=== PATIENT | male | born 1985 | race Caucasian/White ===

== ENCOUNTER 2017-05-27 01:54 | Emergency (ER) | payer SELFPAY ==
[~2017-05-27] VITALS: Ht 177.8 cm; Wt 90.0 kg
[2017-05-27 02:50] LABS: HEMOGLOBIN 19.1 g/dl (14.0-18.0); IMMATURE GRANULOCYTES 0.5 % (0.0-1.0); MEAN CELL VOLUME 91.3 fL CALC (80.0-100.0); MEAN CORPUSCULAR HGB 30.6 pG CALC (26.0-32.0); MEAN CORPUSCULAR HGB CONC 33.5 g/L CALC (32.0-36.0); NEUT# 15.22 thou/uL (1.82-7.42); RED BLOOD COUNT 6.24 mill/uL (4.70-6.10); RED CELL DISTRI WIDTH 12.8 % (11.5-15.5)
[2017-05-27 02:59] LABS: ALBUMIN 4.7 g/dL (3.2-5.0); ALKALINE PHOSPHATASE 114 u/l (38-126); ANION GAP 20 (6-22 (CALC)); BUN 11 mg/dL (9-20); BUN/CREATININE RATIO 11 (12-20 (CALC)); CALCIUM 9.3 mg/dL (8.4-10.2); CARBON DIOXIDE 24 mmol/l (22-30); CHLORIDE 99 mmol/l (95-108); GFR > 60 ML/MIN (>=60 (CALC)); GFR FOR AFR.AMER. > 60 ML/MIN (>=60 (CALC)); GLUCOSE 186 mg/dL (75-110); POTASSIUM 3.1 mmol/l (3.5-5.1); SGOT/AST 69 u/l (17-59); SGPT/ALT 96 u/l (21-72); SODIUM 140 mmol/l (137-146); TOTAL PROTEIN 7.7 g/dL (6.3-8.2)
[2017-05-27 03:03] LABS: ETHYL ALCOHOL < 10 mg/dl (0-30)
[2017-05-27 03:11] LABS: MYOGLOBIN 35 ng/mL (0 - 121)
[2017-05-27 03:38] LABS: URINE BILIRUBIN - DIPSTICK NEGATIVE (NEGATIVE); URINE BLOOD DIPSTICK NEGATIVE (NEGATIVE); URINE CLARITY SLIGHT CLOUDY; URINE COLOR YELLOW; URINE GLUCOSE - DIPSTICK 100 mg/dL (NEGATIVE); URINE KETONE NEGATIVE (NEGATIVE); URINE LEUK ESTERASE NEGATIVE (NEGATIVE); URINE NITRITE - DIPSTICK NEGATIVE (Negative); URINE PROTEIN - DIPSTICK NEGATIVE (NEG-TRACE); URINE UROBILINOGEN - DIPSTICK 0.2 E.U./dL (0.2)
[2017-05-27 03:41] LABS: BARBITURATES NEGATIVE (NEGATIVE); COCAINE NEGATIVE (NEGATIVE); METHADONE NEGATIVE (NEGATIVE); OXCYCODONE NEGATIVE (NEGATIVE); TETRAHYDROCANNABIONOL POSITIVE (NEGATIVE); TRICYLIC ANTIDEPRESSANTS NEGATIVE (NEGATIVE)
[2017-05-27 04:02] LABS: INFLUENZA A NONE DETECTED (NONE DETECT); INFLUENZA B NONE DETECTED (NONE DETECT)
[2017-05-27] MEDS ORDERED: ZPAK PO (06:31)
[2017-05-27] MEDS ORDERED: ZOFRAN ODT4 MG PO (06:31)
[2017-05-27 06:43] VITALS: BP 142/66
== END 2017-05-27 06:42 | disposition home or self-care (01) | DRG 153 ==
LOC: ED 01:54
PROVIDERS: Emergency Medicine
DX: J02.0 Streptococcal pharyngitis (principal); E86.0 Dehydration; I95.1 Orthostatic hypotension; R42 Dizziness and giddiness; R50.9 Fever, unspecified; D72.829 Elevated white blood cell count, unspecified

== ENCOUNTER 2017-05-27 19:23 | Emergency (ER) | payer SELFPAY ==
[~2017-05-27] VITALS: Ht 177.8 cm; Wt 62.4 kg
[~2017-05-27 19:23] MED LIST: ZOFRAN ODT4 MG PO; ZPAK PO
[2017-05-27 20:19] LABS: HEMATOCRIT 45.2 % (39.0-50.0); HEMOGLOBIN 15.4 g/dl (14.0-18.0); IMMATURE GRANULOCYTES 0.5 % (0.0-1.0); MEAN CELL VOLUME 92.6 fL CALC (80.0-100.0); MEAN CORPUSCULAR HGB 31.6 pG CALC (26.0-32.0); MEAN CORPUSCULAR HGB CONC 34.1 g/L CALC (32.0-36.0); NEUT# 15.03 thou/uL (1.82-7.42); RED BLOOD COUNT 4.88 mill/uL (4.70-6.10); RED CELL DISTRI WIDTH 13.1 % (11.5-15.5)
[2017-05-27 20:33] VITALS: BP 152/93
== END 2017-05-27 20:45 | disposition home or self-care (01) | DRG 816 ==
LOC: ED 19:23
PROVIDERS: Emergency Medicine
DX: D72.829 Elevated white blood cell count, unspecified (principal)

== ENCOUNTER 2018-01-05 15:39 | Emergency (ER) | payer SELFPAY ==
[~2018-01-05] VITALS: Ht 177.8 cm; Wt 80.0 kg
[2018-01-05 16:37] LABS: HEMATOCRIT 45.5 % (39.0-50.0); HEMOGLOBIN 15.4 g/dl (14.0-18.0); IMMATURE GRANULOCYTES 0.5 % (0.0-1.0); MEAN CELL VOLUME 93.6 fL CALC (80.0-100.0); MEAN CORPUSCULAR HGB 31.7 pG CALC (26.0-32.0); MEAN CORPUSCULAR HGB CONC 33.8 g/L CALC (32.0-36.0); NEUT# 3.02 thou/uL (1.82-7.42); RED BLOOD COUNT 4.86 mill/uL (4.70-6.10); RED CELL DISTRI WIDTH 12.5 % (11.5-15.5)
[2018-01-05 16:51] LABS: ALBUMIN 4.4 g/dL (3.2-5.0); ALKALINE PHOSPHATASE 88 u/l (38-126); BILIRUBIN, TOTAL 0.4 mg/dL (0.0-1.4); BUN 4 mg/dL (9-20); BUN/CREATININE RATIO 5 (12-20 (CALC)); CARBON DIOXIDE 25 mmol/l (22-30); CHLORIDE 103 mmol/l (95-108); CREATININE 0.9 mg/dL (0.7-1.3); GFR > 60 ML/MIN (>=60 (CALC)); GFR FOR AFR.AMER. > 60 ML/MIN (>=60 (CALC)); SGOT/AST 46 u/l (17-59); SGPT/ALT 53 u/l (21-72); SODIUM 141 mmol/l (137-146)
[2018-01-05 16:54] LABS: ANION GAP 18 (6-22 (CALC)); POTASSIUM 4.7 mmol/l (3.5-5.1)
[2018-01-05 16:58] LABS: URINE BILIRUBIN - DIPSTICK NEGATIVE (NEGATIVE); URINE BLOOD DIPSTICK NEGATIVE (NEGATIVE); URINE COLOR YELLOW; URINE GLUCOSE - DIPSTICK NEGATIVE (NEGATIVE); URINE KETONE NEGATIVE (NEGATIVE); URINE LEUK ESTERASE NEGATIVE (NEGATIVE); URINE NITRITE - DIPSTICK NEGATIVE (Negative); URINE PH 5.5 (4.5-8.0); URINE PROTEIN - DIPSTICK NEGATIVE (NEG-TRACE); URINE SPECIFIC GRAVITY <=1.005; URINE UROBILINOGEN - DIPSTICK 0.2 E.U./dL (0.2)
[2018-01-05 17:02] LABS: URINE CLARITY CLEAR
[2018-01-05] MEDS ORDERED: ZOFRAN4 M1 PO (17:58)
[2018-01-05 18:14] VITALS: BP 136/98
== END 2018-01-05 18:17 | disposition home or self-care (01) | DRG 313 ==
LOC: ED 15:39
PROVIDERS: Family Medicine
DX: R07.89 Other chest pain (principal); E86.0 Dehydration; R42 Dizziness and giddiness; R11.0 Nausea

== ENCOUNTER 2018-11-15 23:32 | Observation (INO) | payer SELFPAY ==
[~2018-11-15] VITALS: Ht 177.8 cm; Wt 96.6 kg
[~2018-11-15 23:32] MED LIST changes: +ZOFRAN4 M1 PO
--- NOTE | 2018-11-15 23:35 | NUR ---
PT TO ROOM AND TRIAGE COMPLETED THERE. PT LABORED BREATHING. ANXIOUS. BBS WHEEZING.
--- NOTE | 2018-11-16 | NUR ---
BREATHING TREATMENT GIVEN USING MOUTH PEICE. BREATHING TECH. FOR GOOD DEPOSITION TO THE LUNGS.
[2018-11-16 00:19] LABS: IMMATURE GRANULOCYTES 0.4 % (0.0-5.0); MEAN CELL VOLUME 91.2 fL CALC (80.0-100.0); MEAN CORPUSCULAR HGB 30.6 pG CALC (26.0-32.0); MEAN CORPUSCULAR HGB CONC 33.6 g/L CALC (32.0-36.0); NEUT# 10.2 thou/uL (1.82-7.42); RED BLOOD COUNT 5.88 mill/uL (4.70-6.10); RED CELL DISTRI WIDTH 12.2 % (11.5-15.5)
[2018-11-16 00:20] LABS: HEMATOCRIT 53.6 % (39.0-50.0)
[2018-11-16 00:29] LABS: ALBUMIN 4.7 g/dL (3.2-5.0); ALKALINE PHOSPHATASE 109 u/l (38-126); ANION GAP 19 (6-22 (CALC)); BILIRUBIN, TOTAL 0.7 mg/dL (0.0-1.4); BUN 12 mg/dL (9-20); BUN/CREATININE RATIO 12 (12-20 (CALC)); CARBON DIOXIDE 27 mmol/l (22-30); CHLORIDE 100 mmol/l (95-108); GFR > 60 ML/MIN (>=60 (CALC)); GFR FOR AFR.AMER. > 60 ML/MIN (>=60 (CALC)); POTASSIUM 4.5 mmol/l (3.5-5.1); SGOT/AST 43 u/l (17-59); SODIUM 141 mmol/l (137-146)
--- NOTE | 2018-11-16 00:35 | NUR ---
IV LEVAQUIN INFUSING AT THIS TIME. NO REACTIONS NOTED.
--- NOTE | 2018-11-16 01:15 | NUR ---
LEVAQUIN COMPLETE, NO REACTIONS NOTED.
[2018-11-16] MEDS ORDERED: ROBITUSSIN AC10 ML PO (01:38)
[2018-11-16] MEDS ORDERED: LEVAQUIN500 MG PO (01:38)
[2018-11-16] MEDS ORDERED: MEDDOSEPAK PO (01:38)
--- NOTE | 2018-11-16 01:40 | NUR ---
DR. LEONARD BACK AT BEDSIDE TO DISCUSS FINDINGS WITH PT.
--- NOTE | 2018-11-16 01:42 | NUR ---
LAB AT BEDSIDE FOR REPEAT LACTIC ACID.
--- NOTE | 2018-11-16 02:30 | NUR ---
REPORT TO TA PADILLA.
[2018-11-16 02:43] VITALS: BP 178/96
--- NOTE | 2018-11-16 02:43 | NUR ---
PT ARRIVED TO UNIT VIA WC . AT 0243. IV SITE IS FREE FROM REDNESS OR EDEMA.
--- NOTE | 2018-11-16 02:50 | NUR ---
PT. TAKEN UP TO M/S AT THIS TIME.
--- NOTE | 2018-11-16 03:14 | NUR ---
ASSESSMENT IS COMPLTED: IV SITE IS FREE FROM REDNESS OR EDEMA. HR IS REG,PULSES ARE STRONG X4, ABD IS SOFT WITH ACTIVE BS. BREATH SOUNDS ARE CLEAR WITH INSPIRATORY AND EXPIRATORY WHEEZING NOTED. TELE MONITOR IN PLACE. CONTINUE TO OSBERVE AND MONITOR
--- NOTE | 2018-11-16 04:05 | NUR ---
PT IS RESTING IN BED WITH NO DISTRESS NOTED. AUDIBLE WHEEZING CAN BE HEARD. CONTINUE TO OSBERVE AND MONITOR.
[2018-11-16 04:08] VITALS: BP 151/85
--- NOTE | 2018-11-16 07:15 | NUR ---
REPORT RECEIVED FROM VALERIE. PT IS RESTING IN BED WITH NO S/S OF DISTRESS NOTED. PT DENIES NEEDS AT THIS TIME. CALL LIGHT IN REACH.
[2018-11-16 08:00] VITALS: BP 138/90
--- NOTE | 2018-11-16 08:22 | NUR ---
ASSESSMENT DONE. TELE IN PLACE. PT IS A&O X3. PT DENIES PAIN AT THIS TIME. NS 125ML/HR INFUSING WELL. PT LUNGS SOUND WHEEZE. INCENTIVE SPIROMETRY ENCOURAGE PT VERBALIZED UNDERSTANDINFG. SAFETY PRECAUTIONS REINFORCED AND CALL LIGHT IN REACH.
[2018-11-16 09:08] LABS: HEMATOCRIT 49.1 % (39.0-50.0); HEMOGLOBIN 16.3 g/dl (14.0-18.0); IMMATURE GRANULOCYTES 0.4 % (0.0-5.0); MEAN CELL VOLUME 92.1 fL CALC (80.0-100.0); MEAN CORPUSCULAR HGB 30.6 pG CALC (26.0-32.0); MEAN CORPUSCULAR HGB CONC 33.2 g/L CALC (32.0-36.0); NEUT# 10.5 thou/uL (1.82-7.42); RED BLOOD COUNT 5.33 mill/uL (4.70-6.10); RED CELL DISTRI WIDTH 12.3 % (11.5-15.5)
[2018-11-16 09:19] LABS: ANION GAP 21 (6-22 (CALC)); BUN 9 mg/dL (9-20); BUN/CREATININE RATIO 13 (12-20 (CALC)); CARBON DIOXIDE 20 mmol/l (22-30); CHLORIDE 104 mmol/l (95-108); CREATININE 0.7 mg/dL (0.7-1.3); GFR > 60 ML/MIN (>=60 (CALC)); GFR FOR AFR.AMER. > 60 ML/MIN (>=60 (CALC)); MAGNESIUM 1.7 mg/dL (1.6-2.3); POTASSIUM 4.5 mmol/l (3.5-5.1); SODIUM 142 mmol/l (137-146)
[2018-11-16 10:16] LABS: URINE BILIRUBIN - DIPSTICK NEGATIVE (NEGATIVE); URINE BLOOD DIPSTICK NEGATIVE (NEGATIVE); URINE COLOR YELLOW; URINE GLUCOSE - DIPSTICK 500 mg/dL (NEGATIVE); URINE KETONE TRACE mg/dL (NEGATIVE); URINE LEUK ESTERASE NEGATIVE (NEGATIVE); URINE NITRITE - DIPSTICK NEGATIVE (Negative); URINE PROTEIN - DIPSTICK NEGATIVE (NEG-TRACE); URINE SPECIFIC GRAVITY >=1.030; URINE UROBILINOGEN - DIPSTICK 0.2 E.U./dL (0.2)
--- NOTE | 2018-11-16 11:59 | NUR ---
PT IS EATING HIS LUNCH WITH NO S/S OF DISTRESS NOTED. PT DENIES NEEDS AT THIS TIME. CALL LIGHT IN REACH.
[2018-11-16 12:00] VITALS: BP 139/89
--- NOTE | 2018-11-16 15:38 | NUR ---
MEDICATED PT WITH MOTRIN FOR PAIN IN BACK 01/15 AND ROBITUSIN GIVEN FOR HIS COUGH. PT DENIES ANY OTHER NEEDS AT THIS TIME. CALL LIGHT IN REACH.
[2018-11-16 16:06] VITALS: BP 128/91
--- NOTE | 2018-11-16 19:30 | NUR ---
BEDSIDE REPORT RECEIVED FROM TA DE. PT SITTING UP IN BED; ALERT AND ORIENTED. PLEASANT AND TALKATIVE. DENIES PAIN. RESPIRATIONS EVEN AND UNLABORED ON ROOM AIR; COUGH NOTED. PLAN OF CARE REVIEWED. PT ENCOURAGED TO VERBALIZE CONCERNS. STATES UNDERSTANDING. SAFETY MEASURES IN PLACE. CALL LIGHT WITHIN REACH.
[2018-11-16 19:55] VITALS: BP 144/87
[2018-11-17 00:13] VITALS: BP 146/91
--- NOTE | 2018-11-17 00:26 | NUR ---
VIBRAMYCIN INFUSING AT THIS TIME. PT ASLEEP WITH NO SIGNS OF DISTRESS; AWAKENS TO VERBAL STIMULI. DENIES PAIN. RESPIRATIONS EVEN AND UNLABORED ON ROOM AIR. IV FLUIDS INFUSING WITHOUT DIFFICULTY; IV SITE APPEARS HEALTHY. CALL LIGHT WITHIN REACH.
[2018-11-17 04:18] VITALS: BP 129/77
--- NOTE | 2018-11-17 04:37 | NUR ---
NO ACUTE CHANGES THROUGHOUT THE NIGHT. NO REQUESTS OR CONCERNS AT THIS TIME.
[2018-11-17 05:37] LABS: HEMATOCRIT 46.9 % (39.0-50.0); HEMOGLOBIN 15.6 g/dl (14.0-18.0); IMMATURE GRANULOCYTES 0.8 % (0.0-5.0); MEAN CELL VOLUME 92.5 fL CALC (80.0-100.0); MEAN CORPUSCULAR HGB 30.8 pG CALC (26.0-32.0); MEAN CORPUSCULAR HGB CONC 33.3 g/L CALC (32.0-36.0); NEUT# 21.14 thou/uL (1.82-7.42); RED BLOOD COUNT 5.07 mill/uL (4.70-6.10); RED CELL DISTRI WIDTH 12.8 % (11.5-15.5)
[2018-11-17 06:12] LABS: ALBUMIN 3.8 g/dL (3.2-5.0); ALKALINE PHOSPHATASE 89 u/l (38-126); ANION GAP 16 (6-22 (CALC)); BILIRUBIN, TOTAL 0.4 mg/dL (0.0-1.4); BUN 10 mg/dL (9-20); BUN/CREATININE RATIO 15 (12-20 (CALC)); CARBON DIOXIDE 22 mmol/l (22-30); CHLORIDE 107 mmol/l (95-108); CREATININE 0.7 mg/dL (0.7-1.3); GFR > 60 ML/MIN (>=60 (CALC)); GFR FOR AFR.AMER. > 60 ML/MIN (>=60 (CALC)); MAGNESIUM 1.8 mg/dL (1.6-2.3); POTASSIUM 4.6 mmol/l (3.5-5.1); SGOT/AST 27 u/l (17-59); SODIUM 141 mmol/l (137-146); TOTAL PROTEIN 6.6 g/dL (6.3-8.2)
--- NOTE | 2018-11-17 07:00 | NUR ---
REPORT RECIVED FROM [facility], RN. PT SLEEPING IN BED. RESPERATIONS EVEN AND UNLABORED ON RA. NO SIGNS OF DISTRESS. WILL CONTINUE TO MONITOR.
[2018-11-17 07:39] VITALS: BP 131/84
--- NOTE | 2018-11-17 08:00 | NUR ---
PT SLEEPING IN BED, EASILY AROUSED. ALERT AND ORIENTED. VS OBTAINED AND ASSESSMENT COMPLETED. RESPIRATIONS EVEN AND UNLABORED, ON RA. WHEEZES NOTED THROUGH OUT LUNGS. TELE MONITOR IN PLACE. IV #18 RT AC INFUSING NS 125 ML/HR. BOWEL SOUNDS ACTIVE. PEDAL PULSES STRONG. PT DENIES ANY PAIN OR DISCOMFORT. PT ENCOURAGED TO USE CALL LIGHT IF NEEDS SHOULD ARISE. SAFETY PRECAUTIONS IN PLACE. CALL LIGHT WITHIN REACH. WILL CONTINUE TO MONITOR.
[2018-11-17 10:55] VITALS: BP 139/88
--- NOTE | 2018-11-17 11:05 | NUR ---
DR. URIOSTEGUI AT PT BEDSIDE DISCUSSING PLAN OF CARE.
--- NOTE | 2018-11-17 12:14 | NUR ---
PT RESTING IN BED. VIBRAMCYIN 100MG IN 100ML SODIUM CHLORIDE HUNG. RESPIRATION EVEN AND UNLABORED, ON RA. SAFETY PRECAUTIONS IN PLACE. CALL LIGHT WITHIN REACH. WILL CONTINUE TO MONITOR.
[2018-11-17] MEDS ORDERED: DOXYCYCL HYC100 MG PO (12:44)
--- NOTE | 2018-11-17 14:00 | NUR ---
PT RESTING IN BED. FRIEND AT BEDSIDE. PT PROVIDED WITH DISCHARGE INSTRUCTIONS AND NEW MEDICATIONS. IV #18 RAC REMOVED, CATHETER INTACT. TELE REMOVED. ALL QUESTIONS ANSWERED. PT DECLINES WHEELCHAIR FOR DISCHARGE.
[2018-11-17] MEDS ORDERED: COZAAR25 MG PO (14:10)
--- NOTE | 2018-11-17 14:18 | NUR ---
Discharge instructions given. Patient verbalizes understanding of same. Discharged in stable condition via Ambulatory to Home with friend. All belongings sent with pt.
== END 2018-11-17 14:17 | disposition home or self-care (01) | DRG 203 ==
LOC: ED 23:32 → ED-I 11-16 01:35 → ED 11-16 01:57 → MS2 11-16 01:58
PROVIDERS: Emergency Medicine; Internal Medicine Nephrology; Nurse Practitioner Family; ADMIT Internal Medicine; ATTEND Internal Medicine
DX: J20.9 Acute bronchitis, unspecified (principal); I10 Essential (primary) hypertension; Z82.49 Family history of ischemic heart disease and other diseases of the circulatory system
CPT/HCPCS: G0378; J1650; J1956; Q9967

== ENCOUNTER 2018-11-20 13:32 | Emergency (ER) | payer SELFPAY ==
[~2018-11-20] VITALS: Ht 177.8 cm; Wt 100.0 kg
[~2018-11-20 13:32] MED LIST changes: +COZAAR25 MG PO; +DOXYCYCL HYC100 MG PO; +LEVAQUIN500 MG PO; +MEDDOSEPAK PO; +ROBITUSSIN AC10 ML PO
[2018-11-20] MEDS ORDERED: VENTOLIN HFA IN (13:46)
[2018-11-20 14:21] LABS: HEMATOCRIT 52.6 % (39.0-50.0); MEAN CELL VOLUME 89.3 fL CALC (80.0-100.0); MEAN CORPUSCULAR HGB 30.6 pG CALC (26.0-32.0); MEAN CORPUSCULAR HGB CONC 34.2 g/L CALC (32.0-36.0); NEUT# 10.76 thou/uL (1.82-7.42); RED BLOOD COUNT 5.89 mill/uL (4.70-6.10); RED CELL DISTRI WIDTH 12.1 % (11.5-15.5)
[2018-11-20 14:51] LABS: ANION GAP 16 (6-22 (CALC)); BUN 14 mg/dL (9-20); BUN/CREATININE RATIO 18 (12-20 (CALC)); CARBON DIOXIDE 25 mmol/l (22-30); CHLORIDE 104 mmol/l (95-108); CREATININE 0.8 mg/dL (0.7-1.3); GFR > 60 ML/MIN (>=60 (CALC)); GFR FOR AFR.AMER. > 60 ML/MIN (>=60 (CALC)); POTASSIUM 4.4 mmol/l (3.5-5.1); SODIUM 139 mmol/l (137-146)
[2018-11-20] MEDS ORDERED: NEBULIZE2 PO (15:26)
[2018-11-20] MEDS ORDERED: DUONEB IN (15:26)
[2018-11-20] MEDS ORDERED: PREDNISONE50 MG PO (15:26)
[2018-11-20 15:46] VITALS: BP 165/90
== END 2018-11-20 15:46 | disposition home or self-care (01) | DRG 203 ==
LOC: ED 13:32
PROVIDERS: Family Medicine
DX: J45.901 Unspecified asthma with (acute) exacerbation (principal); I10 Essential (primary) hypertension